=== PATIENT | male | born 1980 | race Caucasian/White ===

== ENCOUNTER 2023-11-15 20:33 | Inpatient (IN) | payer MEDICAID ==
[~2023-11-15] VITALS: Ht 180.3 cm; Wt 95.6 kg
[2023-11-15] MEDS: propofol 1000mg/100ml bottle 200 ML IV ONE (22:15)
[2023-11-15] MEDS: fentaNYL/PF 50MCG/1 ML 2ML syringe IV ONE (22:37)
[2023-11-15] MEDS: ondansetron/PF 4mg/2ml inj IV ONE (22:38)
[2023-11-15] MEDS: LIDOcaine Viscous 15ml cup TP ONE (23:03)
[2023-11-15] MEDS ORDERED: HYDROcodone/acetaminophen 5mg/325mg tablet PO PRN (23:40)
[2023-11-15] MEDS ORDERED: morphine 2 MG/ML inj. syringe IV PRN (23:40)
[2023-11-15] MEDS ORDERED: magnesium 4gm in 100ml NS 100 ML IV PRN (23:40)
[2023-11-15] MEDS ORDERED: potassium Cl 20 mEq SR tablet PO PRN ×2 (23:40)
[2023-11-15] MEDS ORDERED: magnesium 2GM in 50ml NS 50 ML IV PRN (23:40)
[2023-11-15] MEDS ORDERED: acetaminophen 325mg tablet PO PRN (23:40)
[2023-11-15] MEDS ORDERED: potassium Cl 40MEQ/1/2NS 520ml 520 ML IV PRN (23:40)
[2023-11-15] MEDS ORDERED: ondansetron/PF 4mg/2ml inj IV PRN (23:40)
[2023-11-15 23:48] LABS: BASOPHILS % (AUTO) 0.6 % (0-1); EOSINOPHILS # (AUTO) 0.2 X10'3 (0-0.9); EOSINOPHILS % (AUTO) 2.5 % (0-6); HEMATOCRIT 45.5 % (42.0-52.0); HEMOGLOBIN 15.6 g/dl (14.0-17.9); LYMPHOCYTES # (AUTO) 1.9 X10'3 (1.1-4.8); LYMPHOCYTES % (AUTO) 29.1 % (21-51); MEAN CORPUSCULAR HEMOGLOBIN 30.5 PG (27.0-31.0); MEAN CORPUSCULAR HGB CONC 34.2 g/dL (33.0-36.5); MEAN CORPUSCULAR VOLUME 89.2 FL (78-98); MEAN PLATELET VOLUME 8.7 FL (7.4-10.4); MONOCYTES # (AUTO) 0.5 X10'3 (0-0.9); MONOCYTES % (AUTO) 8.2 % (2-12); NEUTROPHILS # (AUTO) 3.8 X10'3 (1.8-7.7); NEUTROPHILS % (AUTO) 59.6 % (42-75); PLATELET COUNT 195 X10'3 (140-440); RED CELL DISTRIBUTION WIDTH 12.4 % (11.5-14.5); WHITE BLOOD COUNT 6.4 X10'3 (4.5-11.0)
[2023-11-16 00:10] LABS: ALANINE AMINOTRANSFERASE 62 U/L (12-78); ALBUMIN 3.9 G/DL (3.4-5.0); ALBUMIN/GLOBULIN RATIO 1.2 (1.1-1.5); ALKALINE PHOSPHATASE 73 IU/L (46-116); ANION GAP 10 (8-16); ASPARTATE AMINO TRANSFERASE 32 U/L (10-37); BILIRUBIN,TOTAL 0.6 MG/DL (0.1-1.0); BLOOD UREA NITROGEN 17 MG/DL (7-18); BUN/CREATININE RATIO 12.7 (10.0-20.0); CHLORIDE 103 MMOL/L (99-107); CREATININE 1.34 MG/DL (0.60-1.10); GLUCOSE 92 MG/DL (70-104); POTASSIUM 4.2 MMOL/L (3.5-5.1); SODIUM 140 MMOL/L (135-145); TOTAL CARBON DIOXIDE 27.5 MMOL/L (24-32); TOTAL PROTEIN 7.2 G/DL (6.4-8.2); eCRCL 76 ML/MIN; eGFR 58 ML/MIN
[2023-11-16] MEDS: PROPOFOL 1000 MG/100 ML IV ONE (00:11)
[2023-11-16] MEDS: TETanus/Pertussis (Acell)/Diphther VAC/PF (Tdap-Adult) 0.5ml syringe IMVAC ONE (00:22)
[2023-11-16] MEDS ORDERED: LORazepam 0.5 MG tablet PO PRN (00:40)
[2023-11-16] MEDS: LORazepam 2 mg/ml vial IV ONE (00:43)
[2023-11-16] MEDS: HYDROmorphone 1 mg/ml syringe IV ONE (01:14)
[2023-11-16] MEDS: dextrose 5%-1/2 normal saline 1,000 ML IV SCH (01:14)
[2023-11-16] MEDS: morphine 2 MG/ML inj. syringe IV PRN (03:37)
[2023-11-16 03:46] LABS: BILIRUBIN,URINE NEGATIVE (Neg); CLARITY,URINE CLEAR (Clear); COLOR,URINE YELLOW (Yellow); GLUCOSE, URINE NEGATIVE (Neg); KETONES,URINE NEGATIVE (Neg); LEUKOCYTE ESTERASE ,URINE NEGATIVE (Neg); NITRITES, URINE NEGATIVE (Neg); OCCULT BLOOD,URINE NEGATIVE (Neg); PROTEIN,URINE NEGATIVE (Neg); UROBILINOGEN,URINE 0.2 E.U/dL (0.2-1.0)
[2023-11-16 03:55] LABS: INR 1.1 INR; PROTHROMBIN TIME 11.4 SECONDS (9.0-12.0); URINE AMPHETAMINE SCREEN POSITIVE (Neg); URINE BARBITUATE SCREEN NEGATIVE (Neg); URINE BENZODIAZEPINES SCREEN NEGATIVE (Neg); URINE CANNABINOID SCREEN POSITIVE (Neg); URINE COCAINE SCREEN NEGATIVE (Neg); URINE METHADONE SCREEN NEGATIVE (Neg); URINE OPIATE SCREEN POSITIVE (Neg); URINE PHENCYCLIDINE SCREEN NEGATIVE (Neg)
[2023-11-16 03:57] LABS: UA COLLECTION TYPE NON-SPECIFIED
[2023-11-16 05:38] VITALS: BP 111/66; PULSE 85; RESP 15; TEMP 97.7; O2SAT 99
[2023-11-16 07:23] LABS: BASOPHILS % (AUTO) 0.5 % (0-1); EOSINOPHILS # (AUTO) 0.2 X10'3 (0-0.9); EOSINOPHILS % (AUTO) 2.5 % (0-6); HEMATOCRIT 45.3 % (42.0-52.0); HEMOGLOBIN 15.6 g/dl (14.0-17.9); LYMPHOCYTES # (AUTO) 1.9 X10'3 (1.1-4.8); LYMPHOCYTES % (AUTO) 24.7 % (21-51); MEAN CORPUSCULAR HEMOGLOBIN 30.6 PG (27.0-31.0); MEAN CORPUSCULAR HGB CONC 34.3 g/dL (33.0-36.5); MEAN CORPUSCULAR VOLUME 89.2 FL (78-98); MEAN PLATELET VOLUME 9.1 FL (7.4-10.4); MONOCYTES # (AUTO) 0.7 X10'3 (0-0.9); MONOCYTES % (AUTO) 9.1 % (2-12); NEUTROPHILS # (AUTO) 4.8 X10'3 (1.8-7.7); NEUTROPHILS % (AUTO) 63.2 % (42-75); PLATELET COUNT 183 X10'3 (140-440); RED BLOOD COUNT 5.08 X10'6 (4.70-6.10); RED CELL DISTRIBUTION WIDTH 12.3 % (11.5-14.5); WHITE BLOOD COUNT 7.6 X10'3 (4.5-11.0)
[2023-11-16 07:28] LABS: POTASSIUM 3.8 MMOL/L (3.5-5.1)
[2023-11-16] MEDS ORDERED: K and/or MAG REPLACEMENT MC SCH (08:00)
[2023-11-16] MEDS ORDERED: HYDROmorphone inj. 0.5 MG/0.5 ML DISP.SYRIN IV PRN (08:15)
[2023-11-16] MEDS ORDERED: HYDROmorphone 1 mg/ml syringe IV PRN (08:15)
[2023-11-16] MEDS ORDERED: diazepam inj 5 MG/ML inj. IV ONE (08:15)
[2023-11-16] MEDS: HYDROcodone/acetaminophen 10/325mg tab PO PRN (09:02)
[2023-11-16] MEDS ORDERED: HYDR-3972 PO (09:48)
[2023-11-16] MEDS ORDERED: ONDA4TAB12 PO (09:48)
== END 2023-11-16 12:37 | disposition home or self-care (01) | DRG 254 ==
LOC: ER 20:34 → ED HOLD 23:47 → PCU 3S 11-16 05:15
PROVIDERS: ADMIT Family Medicine; ATTEND Family Medicine
PROC: 0DCP7ZZ Extirpation of Matter from Rectum, Via Natural or Artificial Opening (ICD-10-PCS; principal; 2023-11-16)
DX: T18.5XXA Foreign body in anus and rectum, initial encounter (principal); N17.0 Acute kidney failure with tubular necrosis; E86.0 Dehydration; F10.90 Alcohol use, unspecified, uncomplicated; F12.90 Cannabis use, unspecified, uncomplicated; Z20.822 Contact with and (suspected) exposure to COVID-19; F17.210 Nicotine dependence, cigarettes, uncomplicated; W44.8XXA Other foreign body entering into or through a natural orifice, initial encounter; Y93.89 Activity, other specified; Y92.89 Other specified places as the place of occurrence of the external cause; Y99.8 Other external cause status
CPT/HCPCS: 36415; 74176; 80053; 80305; 81003; 83735; 84132; 85025; 85610; 86885; 86900; 86901; 87081; 87811; 90715; 99285; A4620; G0378; J1170; J2060; J2270; J2405; J2704; J3010; J7030